=== PATIENT | male | born 1965 | race Caucasian/White ===

== ENCOUNTER 2020-03-15 15:42 | Emergency (ER) | payer OTHER, SELFPAY ==
--- NOTE | ~2020-03-15 | XR_ITS ---
EXAMINATION: XR foot LT min 3V DATE: 03/15/2020 16:01 INDICATION: Left foot pain. TECHNIQUE: 4 views of left foot were obtained. COMPARISON: None. FINDINGS: Bone alignment is normal. No fracture. There is mild osteoarthritis of first metatarsophala ngeal joint and talonavicular joint. There is heterotopic ossification distal to lateral malleolus fr om old injury. There are enthesophytes at the posterior and plantar aspects of calcaneal tuberosity. IMPRESSION: 1. Mild polyarticular osteoarthritis. Reviewed, dictated and finalized at location A.
[2020-03-15 15:44] VITALS: BP 145/78; PULSE 78; RESP 18; TEMP 36.4; O2SAT 100
[2020-03-15] MEDS: KETOROLAC (*BKC) 60 MG/2 ML VIAL IM (16:44)
--- NOTE | 2020-03-15 16:48 | ED.GENADULT ---
HPI - General Adult General Chief complaint: Extremity Injury, Lower Stated complaint: left ankle injury Time Seen by Provider: 03/15/20 15:54 Source: patient and family Mode of arrival: ambulatory Limitations: no limitations History of Present Illness HPI narrative: Patient is a 55-year-old male who presents with left midfoot ankle pain that began over a week ago patient was standing felt a pop in the ankle and has since had intermittent pain to the medial aspect of the midfoot ankle patient denies bruising swelling. Patient notes today while ambulating on uneven surface he began to have increasing pain patient denies other injury or complaint and is otherwise in the room in no distress presents with normal gait no distress Related Data Allergies Allergy/AdvReac Type Severity Reaction Status Date / Time No Known Allergies Allergy Unknown Unverified 03/15/20 15:46 Review of Systems Review of Systems: All systems reviewed & are unremarkable except as noted in HPI and below PMFSH Social History Social History (Updated 03/15/20 @ 16:49 by Nicho Tran PA-C) Smoking status: Never smoker Gender identity (if verbalized by the patient): Male Exam Narrative: Exam Narrative: GENERAL: Well-appearing, well-nourished, and in no acute distress. HEAD: Normocephalic, atraumatic. EYES: PERRLA and EOMI. ENT: Nares clear, no rhinorrhea or epistaxis. Mucous membranes moist. EXTREMITIES: Normal range of motion. No edema. Tenderness of the anterior medial aspect of the left ankle midfoot no deformities noted SKIN: Warm, dry, no rash. NEURO: No focal deficits. Alert and oriented x3. Neurovascularly intact. Capillary refill less than 2 seconds PSYCH: Normal mood and affect. Course Course Emergency Course: Patient in the room in no distress no high risk change in the imaging will be referred back to primary care and provided with orthopedic follow-up managed with anti-inflammatories was given anti-inflammatory in the emergency department as well as Iglesia wrap Vital Signs Vital signs: Vital Signs Temperature 97.6 F 03/15/20 15:44 Pulse Rate 78 03/15/20 15:44 Respiratory Rate 18 03/15/20 15:44 Blood Pressure 145/78 H 03/15/20 15:44 Pulse Oximetry 100 03/15/20 15:44 Temperature 97.6 F 03/15/20 15:44 Pulse Rate 78 03/15/20 15:44 Respiratory Rate 18 03/15/20 15:44 Blood Pressure 145/78 H 03/15/20 15:44 Pulse Oximetry 100 03/15/20 15:44 Medical Decision Making MDM Narrative Medical decision making narrative: Patients injury or pain is consistent with musculoskeletal etiology. No signs of neurological or vascular compromise on exam. Compartments and tisues are soft without signs of compartment syndrome. Pain is felt appropriate for further evaluation on an outpatient basis. Vital Signs Vital Signs: Vital Signs Temperature 97.6 F 03/15/20 15:44 Pulse Rate 78 03/15/20 15:44 Respiratory Rate 18 03/15/20 15:44 Blood Pressure 145/78 H 03/15/20 15:44 Pulse Oximetry 100 03/15/20 15:44 Temperature 97.6 F 03/15/20 15:44 Pulse Rate 78 03/15/20 15:44 Respiratory Rate 18 03/15/20 15:44 Blood Pressure 145/78 H 03/15/20 15:44 Pulse Oximetry 100 03/15/20 15:44 Discharge Plan Discharge Clinical Impression: Acute left ankle pain Patient Disposition: Home, Self-Care Condition: Stable Instructions: Antibiotic Form, Arthralgia (ED) Additional Instructions: Wear brace and use crutches. No weight on the affected leg until able to bear weight without pain. Ice and elevate extremity. Pain medication as needed and directed. Follow up with your doctor for further care in the next 7 days. Return if symptoms worsen or concerns or any increase in redness swelling pain or fever over 100.5 Prescriptions: New ibuprofen [IBU] 600 mg tablet 600 mg PO QID PRN (Reason: fever or pain) Qty: 7 RF: 0 Interventions: Discharge Disposition Last Done: 03/15/20 16:44
== END 2020-03-15 16:50 | disposition home or self-care (01) ==
PROVIDERS: Emergency Provider Emergency Medicine; PCP Internal Medicine
DX: M25.572 Pain in left ankle and joints of left foot (principal); M19.072 Primary osteoarthritis, left ankle and foot
CPT/HCPCS: 73630; 96372; 99283; J1885

== ENCOUNTER 2023-12-16 15:44 | Inpatient (IN) | payer OTHER, SELFPAY ==
[2023-12-16] VITALS (9 sets, daily range): BP systolic 132–165; BP diastolic 76–95; PULSE 63–72; RESP 15–17; TEMP 36–36.6; O2SAT 97–100; BMI 32.1
--- NOTE | ~2023-12-16 | CT_ITS ---
CTA chest abdomen pelvis Ordering provider: Severo Flannery MD History: . rule out dissection . Comparison: None. Technique: CT angiogram chest was performed following timed intravenous injection of contrast. Thin s lice axial images and reformatted coronal images were obtained. Three dimensional reformatted images of the chest were also obtained using a [employer]oust workstation. Also, CT of the abdomen and pelvis was pe rformed with IV contrast. Radiation reduction technique utilized. DLP is 1418.34 mGy. 100 mL Omnipaque 350 was given. FINDINGS: CHEST: --PULMONARY ARTERIES: No pulmonary embolus. --VISUALIZED THORACIC INLET: Normal. --MEDIASTINUM: Aorta/coronary arteries: Mild atheromatous disease. No evidence of dissection. Heart/other: The heart is not enlarged. Lymph nodes: No mediastinal or hilar adenopathy. --LUNGS: Dependent atelectatic changes. No pulmonary nodules or masses. No infiltrates or effusions. No pneumo thorax. --MUSCULOSKELETAL: Bones: Age appropriate degenerative changes of the spine. Superficial soft tissues: The superficial soft tissues are normal. ABDOMEN/PELVIS: --MUSCULOSKELETAL: Superficial soft tissues: The superficial soft tissues are normal. Bones: Age appropriate degenerative changes of the spine. --UPPER ABDOMINAL ORGANS: Liver: Fat infiltration. Gallbladder: Normal. Spleen: Normal. Stomach/duodenum: Normal. Pancreas: Normal. Adrenals: Normal. Kidneys: Normal. --PELVIC ORGANS: The bladder is normal. No bladder stones. --BOWEL AND MESENTERY: Colon: No evidence of diverticulitis.. Normal appendix. Small Bowel: Normal. No obstruction. Peritoneum/mesentery: No free air or free fluid. No mesenteric lymphadenopathy. --RETROPERITONEUM: Mild atheromatous disease of the abdominal aorta. No retroperitoneal lymphadenop athy. IMPRESSION: CHEST: 1. No pulmonary embolism. 2. No aortic dissection. 3. No acute cardiopulmonary pathology. ABDOMEN/PELVIS: 1. Fat infiltration of the liver 2. No acute abdominal process. Reviewed, dictated and finalized at location A.
--- NOTE | 2023-12-16 15:46 | ECG_ITS ---
Test Date: 2023-12-16 20:06:52 Measurements Intervals [place] Rate: 59 P: 27 CT: 158 QRS: 26 QRSD: 97 T: 31 QT: 408 QTc: 406 Interpretive Statements SINUS BRADYCARDIA WITHIN NORMAL LIMITS No previous ECG available for comparison Electronically Signed On 12-17-2023 08:00:01 CDT by Mukesh Mixon M.D.
--- NOTE | 2023-12-16 15:49 | ECG_ITS ---
Test Date: 2023-12-16 15:49:47 Measurements Intervals [place] Rate: 67 P: 30 AR: 140 QRS: 19 QRSD: 95 T: 44 QT: 375 QTc: 397 Interpretive Statements SINUS RHYTHM No previous ECG available for comparison Electronically Signed On 12-20-2023 13:24:02 CDT by Saira Asif M.D.
[2023-12-16 16:21] LABS: Basophils Absolute Auto 0.1 K/mm3 (0.0-0.1); Basophils Percent Auto 0.8 % (0.2-1.2); Eosinophils Absolute Auto 0.1 K/mm3 (0-0.3); Eosinophils Percent Auto 1.9 % (0-4.4); Hematocrit 45.1 % (42.0-52.0); Hemoglobin 15.8 g/dL (14.0-18.0); Immature Granulocyte Absolute 0.01 K/mm3 (0.00-0.031); Immature Granulocyte Percent A 0.2 % (0-0.5); Lymphocytes Absolute Auto 1.51 K/mm3 (0.9-3.2); Lymphocytes Percent Auto 25.6 % (18.3-44.2); Mean Corpuscular Hemoglobin 31.5 pg (26-34); Mean Corpuscular Volume 89.8 fl (80-100); Mean Platelet Volume 8.9 fl (7.4-10.4); Monocytes Absolute Auto 0.6 K/mm3 (0.1-0.6); Monocytes Percent Auto 10.7 % (2.6-8.5); Neutrophils Absolute Auto 3.6 K/mm3 (1.3-6.7); Neutrophils Percent Auto 60.8 % (45.5-73.1); Platelet Count Result 205 k/mm3 (150-375); Red Blood Count 5.02 M/mm3 (4.6-6.20); Red Cell Distribution Width 12.9 % (11.5-14.5); White Blood Count 5.9 K/mm3 (4.5-10.0)
[2023-12-16 16:35] LABS: Alanine Aminotransferase 21 U/L (6-50); Albumin Level 4.6 g/dL (3.5-5.1); Alkaline Phosphatase 88 U/L (38-126); Anion Gap 8 mmol/L (4-12); Aspartate Amino Transferase 28 U/L (17-59); Bilirubin,Total 0.9 mg/dL (0.2-1.3); Blood Urea Nitrogen 19 mg/dL (9-20); Calcium 9.2 mg/dL (8.4-10.2); Carbon Dioxide 25 mmol/L (22-30); Chloride 108 mmol/L (98-107); Estimated CRCL calculation 83 ml/min; Estimated Glomerular Filt Rate > 60; Glucose 103 mg/dL (65-110); Lipase 32 U/L (23-300); Potassium 3.7 mmol/L (3.4-5.0); Sodium 141 mmol/L (137-145)
[2023-12-16 16:49] LABS: Troponin I 0.052 ng/mL (0.000-0.034)
--- NOTE | 2023-12-16 18:05 | ED.GENADULT ---
HPI - General Adult General Chief complaint: Chest Pain Stated complaint: Back pain radiating to sternum up into jaw Time Seen by Provider: 12/16/23 17:50 History of Present Illness HPI narrative: Patient 58-year-old gentleman presents emergency department with chief complaint chest pain and back pain. Patient reports he felt as though a sledge hammer hit him in the back and the radiated into his chest and into his jaw patient reports he has not felt well since Tuesday and then reports that the episodes have been intermittent the patient reports his pain is essentially resolved at this point patient reports no prior cardiac history Related Data Allergies Allergy/AdvReac Type Severity Reaction Status Date / Time No Known Allergies Allergy Unknown Unverified 03/15/20 15:46 Review of Systems Review of Systems: A 10 system review of systems was completed on the patient and is negative except for what is stated in the HPI. Nursing and ancillary documentation was reviewed. [facility] Social History Social History Smoking status: Never smoker Gender identity (if verbalized by the patient): Male Exam Narrative: GENERAL: Well-appearing, well-nourished, and in no acute distress. HEAD: Normocephalic, atraumatic. EYES: PERRLA and EOMI. ENT: Nares clear, no rhinorrhea or epistaxis. Mucous membranes moist. NECK: Supple. CHEST: Clear to auscultation. No respiratory distress. HEART: Regular rate and rhythm. No murmur heard. Normal peripheral pulses. ABDOMEN: Soft, nontender, nondistended, normal active bowel sounds. EXTREMITIES: Normal range of motion. No edema. SKIN: Warm, dry, no rash. NEURO: No focal deficits. Alert and oriented x3. PSYCH: Normal mood and affect. Course Vital Signs Vital signs: Vital Signs Temperature 36.3 C L 12/16/23 15:49 Pulse Rate 72 12/16/23 15:49 Respiratory Rate 17 12/16/23 15:49 Blood Pressure 150/80 H 12/16/23 15:49 Pulse Oximetry 99 12/16/23 15:49 Oxygen Delivery Room Air 12/16/23 15:49 Temperature 36.6 C 12/16/23 18:00 Pulse Rate 65 12/16/23 18:00 Respiratory Rate 16 12/16/23 18:00 Blood Pressure 143/95 H 12/16/23 18:00 Pulse Oximetry 98 12/16/23 18:00 Oxygen Delivery Room Air 12/16/23 16:51 Medical Decision Making [facility] Narrative Medical decision making narrative: Differential diagnosis includes ACS, unstable angina, PE, aneurysm, dissection EKG showed no acute ischemic changes Laboratory studies were obtained on the patient showed normal CBC CMP was within normal limits lipase was normal troponin was slightly elevated at 0.052 CTA chest abdomen pelvis was obtained showed no evidence of PE no evidence of dissection no evidence of aneurysm. Patient's pain is essentially resolved at this point case was discussed with hospitalist cardiology has been contacted for consultation. Vital Signs Vital Signs: Vital Signs Temperature 36.3 C L 12/16/23 15:49 Pulse Rate 72 12/16/23 15:49 Respiratory Rate 17 12/16/23 15:49 Blood Pressure 150/80 H 12/16/23 15:49 Pulse Oximetry 99 12/16/23 15:49 Oxygen Delivery Room Air 12/16/23 15:49 Temperature 36.6 C 12/16/23 18:00 Pulse Rate 65 12/16/23 18:00 Respiratory Rate 16 12/16/23 18:00 Blood Pressure 143/95 H 12/16/23 18:00 Pulse Oximetry 98 12/16/23 18:00 Oxygen Delivery Room Air 12/16/23 16:51 Lab Data 12/16/23 16:11 12/16/23 16:11 Labs: Lab Results 12/16/23 Range/Units 16:11 WBC 5.9 (4.5-10.0) K/mm3 RBC 5.02 (4.6-6.20) M/mm3 Hgb 15.8 (14.0-18.0) g/dL Hct 45.1 (42.0-52.0) % MCV 89.8 (80-100) fl MCH 31.5 (26-34) pg MCHC 35.0 (32-36) g/dl RDW 12.9 (11.5-14.5) % Plt Count 205 (150-375) k/mm3 MPV 8.9 (7.4-10.4) fl Immature Gran % (Auto) 0.2 (0-0.5) % Neut % (Auto) 60.8 (45.5-73.1) % Lymph % (Auto) 25.6 (1
--- NOTE | 2023-12-16 19:24 | PC.NURSE ---
Pt states he is not having any cp at this time and would like to hold off on the ordered pain medicine for now. Pt instructed to notify this RN or another staff member if his pain returns.
--- NOTE | 2023-12-16 20:00 | ECG_ITS ---
Test Date: 2023-12-16 22:21:41 Measurements Intervals [place] Rate: 56 P: 18 NV: 161 QRS: 12 QRSD: 95 T: 8 QT: 407 QTc: 395 Interpretive Statements SINUS BRADYCARDIA WITHIN NORMAL LIMITS Compared to ECG 12/16/2023 20:06:52 No significant changes Electronically Signed On 12-17-2023 08:03:46 CDT by Mukesh Mixon M.D.
[2023-12-16 20:09] LABS: Troponin I 0.131 ng/mL (0.000-0.034)
[2023-12-16] MEDS: ASPIRIN 81 MG CHEWABLE TABLET 324 MG PO (20:40)
--- NOTE | 2023-12-16 20:49 | PC.NURSE ---
This patient, Ankur Julien, was admitted to IMU Room 200-01. Patient/family oriented to hospital policies and general routines including ID bracelet, bed and alarms, visiting hours, pain management, procedures, bathroom and other care routines, personal items, smoking policy, room service/diet, and visiting hours. Information on how to activate the Rapid Response Team has been discussed. Patient/Family are encouraged to report perceived risks to care and to ask questions if they do not understand what they are told or what they should do.
--- NOTE | 2023-12-16 21:02 | PM.IMHP ---
H&P: HPI History of Present Illness Date/Time: 12/16/23 21:02 Chief Complaint: Chest pain Narrative: 58-year-old male previously healthy who presented to the ER with chest pain. 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 He developed lumbar boat pain between his shoulder blades that shortly thereafter radiated through to his chest. The pain was a 7/10 intensity. He reports that the pain was like the after effects of a sledgehammer head hit him in the back. 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 He denied having lightheadedness or palpitations. He describes the the pain as heaviness. The patient stated the pain lasted a few minutes when it 1st occurred in the morning. Then happened again 2nd time in the afternoon and lasted for a few minutes. Pain was the same intensity at that time but then radiated up into the neck and into the left jaw. He had not felt well since Tuesday. He had an episode of double vision the day before. He had had prior episode of chest pain that was similar to this about a year ago but he did not seek medical care. He does not routinely follow with primary care physician. He was not in active pain when he arrived to the ER. He has had several friends who recently had heart attacks and or of heart disease and he reports he has 8-year-old twins that he knew we needed to be around for his children so, he reluctantly decided to come into the ER for evaluation. On presentation the ER the patient had mildly elevated blood pressures. His is at bedside and helps provide history and states the patient does snore quite vigorously. Patient has never been tested for sleep apnea. He reports that his weight is been stable but he is aware that he is obese. His states that the patient has been told the past that he is a prediabetic. He has not seen a doctor in several years. He did take some ibuprofen earlier in the day to see if this would relieve his pain. Full-dose aspirin was initially ordered in the ER but was not administered by nursing staff since the patient stated he did not want anything for pain. Full-dose aspirin was reordered just prior to the patient coming up to the IMU and was administered. Review of Systems Review of Systems: 12 systems were reviewed with pertinent positives and negatives per HPI. Except as documented in the HPI, all other systems were reviewed and are negative. [facility] Past Medical History Medical History (Updated 12/16/23 @ 22:38 by Renea Cole DO) GERD (gastroesophageal reflux disease) Kidney stones Obesity (BMI 30.0-34.9) Surgical History Surgical History (Updated 12/16/23 @ 22:38 by Renea Cole DO) H/O hemorrhoidectomy S/P cystoscopy with ureteral stent placement Family History Family History (Updated 12/16/23 @ 22:33 by Renea Cole DO) Sibling Acute myocardial infarction, Onset Age: 66 Father Acute myocardial infarction, Onset Age: 63 Sibling Acute myocardial infarction, Onset Age: 60 Mother Age older than 80 years at age 93 Social History Social History (Updated 12/16/23 @ 22:34 by Renea Cole DO) Social History: Patient lives with his they have been since 2010. They have 8-year-old twins. 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 He is a lifelong nonsmoker does not drink alcohol at all or use illicit substances. He has a sedentary lifestyle. Code status: Full code Surrogate decision maker: Ghazal () Smoking status: Never smoker Alcohol intake: never Substance use: never Substance use type: does not use Do You Feel Safe in your Home?: Yes Lack of Transportation: No Lack of Food: Never True Current Housing: I Have Housing Concerned About Future Housing: No Difficulty Paying Gas/Electric Bills: N
[2023-12-16] MEDS: ENOXAPARIN 120 MG/0.8 ML SYRINGE 107 MG SUB-Q (21:53)
[2023-12-16 22:43] LABS: Troponin I 0.239 ng/mL (0.000-0.034)
[2023-12-16] MEDS: METOPROLOL TARTRATE 25 MG TABLET PO (23:01)
[2023-12-16 23:58] LABS: Cholesterol 199 mg/dL (0-200); HDL Direct 33 mg/dL; Triglycerides 157 mg/dL (<150)
[2023-12-17] VITALS (18 sets, daily range): BP systolic 126–132; BP diastolic 64–83; PULSE 57–70; RESP 15–22; TEMP 36.1–36.8; O2SAT 97–100
[2023-12-17 00:08] LABS: LDL Cholesterol Direct 149 mg/dL
[2023-12-17 05:58] LABS: Hemoglobin A1C 4.9 % (<5.7)
[2023-12-17 06:12] LABS: Troponin I 0.418 ng/mL (0.000-0.034)
[2023-12-17 07:32] LABS: Free T4 Free Thyroxine Reflex 1.33 ng/dL (0.78-2.19)
--- NOTE | 2023-12-17 08:46 | PM.CNCAR ---
Assessment and Plan Assessment and plan (1) Non-STEMI (non-ST elevated myocardial infarction): Code(s): I21.4 - Non-ST elevation (NSTEMI) myocardial infarction Status: Acute Plan 58-year-old man with unknown previous medical history is he does not see a physician with any regularity. He presents with intermittent chest pain yesterday which must be presumed to be evidence of acute coronary syndrome/unstable angina as he has had a modest troponin rise. He has appropriately been started on aspirin and beta-betsy. I will add clopidogrel and rosuvastatin to this regimen. If he remains stable and symptom-free as he is now we will proceed with coronary angiography on Tuesday. Obviously if he becomes unstable that can happen more urgently. Thank you for asking me to see this nice man in consultation Mukesh Mixon MD [facility] History of Present Illness History of Present Illness Consult date/time: 12/17/23 08:46 Reason For Visit: chest pain, elevated troponin Narrative: This is a very pleasant 58-year-old man I am seeing at the request of the hospitalist because of chest pain and modest to elevation of troponin. He is not known to have cardiac problems prior to his and he really is not known to have much in the way of medical problems as he does not follow with a primary care physician with any regularity. He was in his usual state of good health when yesterday at work he noted the onset of some interscapular back pain that felt as though a hammer hit him in the back after short time this radiate around to the anterior aspect of the chest in the substernal region and then up into the anterior aspect of the neck and the jaw. The symptoms subsided after a while but then recurred a little later in the day. He finishes day of work a but that he told his that he thought he should go to the hospital for evaluation. In the emergency room by report he was asymptomatic his electrocardiogram looked normal. His troponin level was very slightly elevated but has increased modestly since the admission and in that setting I am seeing him in the IMU. He has not had any recurrence of symptoms since admission. He has been given aspirin, metoprolol and a therapeutic dose of Lovenox last evening by the hospitalist. He has not received any additional anti-platelet therapy or statin. He states that he is not known to have hypertension diabetes or dyslipidemia but again he does not follow regularly with a physician. He has does report a prominent family history of coronary disease with infarctions in both of his brothers and his father as well. No and has at a premature age of ischemic heart disease. He has not had any significant surgical operations and otherwise feels well at this time. Review of Systems Constitutional: Constitutional: Reports no additional constitutional complaints Eyes: Eyes: Reports no additional eye complaints ENT: Reports system reviewed and no additional complaints, except as documented Cardiovascular: Cardiovascular: Reports as per HPI Respiratory: Respiratory: Reports no additional respiratory complaints Gastrointestinal: Gastrointestinal: Reports no additional gastrointestinal complaints Musculoskeletal: Musculoskeletal: Reports no additional musculoskeletal complaints Integumentary/Breasts: Skin/Breast: Reports system reviewed and no additional complaints, except as docu Neurologic: Reports system reviewed and no additional complaints, except as documented Endocrine: Endocrine: Reports no additional endocrine complaints Hematologic/Lymphatic: Hematologic/Lymphatic: Reports no additional hematologic/lymphatic complaints Allergic/Immunologic: Allergic/Immunologic: Reports no additional allergic/immunologic complaints [facility] Past Medical History Medical History (Updated 12/16/23 @ 22:38 by Renea Cole DO) GERD (gastroesophageal reflux disease) Kidney stones Obesity (BMI 30.0-34.9) [place]
[2023-12-17 09:06] LABS: Total Triiodothyronine (T3) 1.35 NG/ML (0.97-1.69)
[2023-12-17] MEDS: METOPROLOL TARTRATE 25 MG TABLET PO ×2 (09:29→20:16)
[2023-12-17] MEDS: ROSUVASTATIN 10 MG TABLET PO (09:30)
[2023-12-17] MEDS: CLOPIDOGREL BISULFATE 300 MG TABLET PO (09:30)
--- NOTE | 2023-12-17 12:40 | ECG_ITS ---
Test Date: 2023-12-17 12:47:06 Measurements Intervals [place] Rate: 58 P: 22 PA: 158 QRS: 24 QRSD: 89 T: 41 QT: 399 QTc: 395 Interpretive Statements SINUS BRADYCARDIA OTHERWISE NORMAL ELECTROCARDIOGRAM Compared to ECG 12/16/2023 22:21:41 No significant changes Electronically Signed On 12-18-2023 08:24:40 CDT by Mukesh Mixon M.D.
--- NOTE | 2023-12-17 13:04 | PC.NURSE ---
Pt c/o CP. Dr Mixon notified and nitro PRN ordered. Pain relieved on it's own by the time RN brought Nitro to patient so it was not given. Pt. educated on reporting future pain to RN.
--- NOTE | 2023-12-17 13:06 | PCRCNOTE ---
Addendum entered by Johnna Hill, NATURAL RESOURCE SPECIALIST 12/17/23 13:11: Would encourage provider to consider autopap for pt as inpatient. Original Note: Spoke with pt and family regarding ApneaLink test, they had questions pertaining to the reason for the test and what results would mean. Discussed the screening tool and possible next steps for a titration study and cpap machine should he officially qualify with sleep study. We also discussed SHELDON and editorial writer explained pathology and importance of treatment for it.
[2023-12-17] MEDS: ENOXAPARIN 120 MG/0.8 ML SYRINGE 105 MG SUB-Q ×2 (13:08→20:17)
--- NOTE | 2023-12-17 14:02 | PM.IMPN ---
Progress Note: A&P Assessment and Plan (1) Non-STEMI (non-ST elevated myocardial infarction): Code(s): I21.4 - Non-ST elevation (NSTEMI) myocardial infarction Status: Acute Assessment and Plan: Patient presents with upper back pain that radiated through to his chest that occurred while working. Patient does not follow up with his doctor. He was noted to have elevated blood pressure on admission. Patient has been told that he is prediabetic. Is a lifelong nonsmoker. Coronary disease in family members in their 60s. Troponin trended up to 0.42. CTA of the chest, abdomen and pelvis showed fatty infiltration of the liver but no acute process. Specifically there was no PE or aortic dissection. EKG showed sinus bradycardia otherwise normal EKG. Repeat EKG showed no change. He was given aspirin. He was given a dose of Lovenox. He was admitted for further care. Total cholesterol was 199 with LDL 149. Cardiology consulted. Was loaded with Plavix. He was started on Lopressor, Plavix and Crestor. He was resumed on Lovenox. Plan is for left heart catheterization on Tuesday. (2) Elevated blood pressure reading: Code(s): R03.0 - Elevated blood-pressure reading, without diagnosis of hypertension Status: Acute Assessment and Plan: Systolic blood pressure mildly elevated 140-160 range. Blood pressure better after metoprolol dose. Continue to monitor. (3) Snoring: Code(s): R06.83 - Snoring Status: Acute Assessment and Plan: Patient with snoring per history. ApneaLink has been ordered. Follow-up on results. (4) Obesity (BMI 30.0-34.9): Code(s): E66.9 - Obesity, unspecified Status: Acute Assessment and Plan: BMI 32. Plan DVT prophylaxis -Lovenox Code status -full Subjective Date/time seen: 12/17/23 14:02 Interval history: 58yo male with GERD here for chest pain and found to have NSTEMI Slight chest pain and headache earlier but was brief and no NTG given. He feels well otherwise. No prior events of chest pain or increasing shortness of breath with normal activity. Exam Narrative: AF 97.1 129/69 64 22 97% Gen - NARD Chest - CTA bilaterally, nml RR CV - RRR S1/S2. Tele showing no significant dysrhythmias Abd - Soft, NT/ND, Positive BS Ext - No pedal edema Neuro - Alert and oriented. Nonfocal exam. Psych - Nml mood and affect Skin - Warm and dry Objective Data Vital Signs Vital Signs: Vital Signs - 24 hr 12/16/23 15:49 12/16/23 16:51 12/16/23 17:00 Temperature 97.4 F L 97.9 F Pulse Rate 72 67 Respiratory Rate 17 16 Blood Pressure 150/80 H 138/89 Pulse Oximetry 99 97 Oxygen Delivery Room Air Room Air 12/16/23 18:00 12/16/23 20:30 12/16/23 20:50 Temperature 97.8 F 96.8 F L Pulse Rate 65 68 65 Respiratory Rate 16 15 15 Blood Pressure 143/95 H 132/94 H 165/90 H Pulse Oximetry 98 98 100 Oxygen Delivery 12/16/23 23:01 12/16/23 23:27 12/16/23 23:32 Temperature 97 F L Pulse Rate 71 63 63 Respiratory Rate 15 Blood Pressure 134/76 Pulse Oximetry 100 100 Oxygen Delivery Room Air 12/16/23 22:00 12/17/23 00:00 12/17/23 00:00 Temperature Pulse Rate 63 62 Respiratory Rate Blood Pressure Pulse Oximetry Oxygen Delivery Room Air 12/16/23 21:00 12/17/23 02:00 12/17/23 04:00 Temperature Pulse Rate 57 L 59 L Respiratory Rate Blood Pressure Pulse Oximetry Oxygen Delivery Room Air 12/17/23 04:00 12/17/23 04:00 12/17/23 05:54 Temperature 96.9 F L Pulse Rate 62 58 L Respiratory Rate 15 Blood Pressure 127/81 Pulse Oximetry 100 Oxygen Delivery Room Air 12/17/23 07:23 12/17/23 09:29 12/17/23 08:00 Temperature 97.1 F L Pulse Rate 61 68 Respiratory Rate 21 H Blood Pressure 132/83 Pulse Oximetry 97 Oxygen Delivery Room Air 12/17/23 08:00 12/17/23 10:00 12/17/23 12:28 Temperature 97.1 F L Pulse Rate 6
[2023-12-18] VITALS (19 sets, daily range): BP systolic 117–133; BP diastolic 68–83; PULSE 55–68; RESP 18–20; TEMP 36.2–37.2; O2SAT 96–99
[2023-12-18] MEDS: ASPIRIN 81 MG CHEWABLE TABLET PO (08:06)
[2023-12-18] MEDS: METOPROLOL TARTRATE 25 MG TABLET PO ×2 (08:06→20:27)
[2023-12-18] MEDS: ROSUVASTATIN 10 MG TABLET PO (08:06)
[2023-12-18] MEDS: CLOPIDOGREL BISULFATE 75 MG TABLET PO (08:06)
[2023-12-18] MEDS: ENOXAPARIN 120 MG/0.8 ML SYRINGE 105 MG SUB-Q ×2 (08:07→20:28)
--- NOTE | 2023-12-18 09:49 | PM.PNCARD ---
Progress Note: A&P Assessment and Plan (1) Non-STEMI (non-ST elevated myocardial infarction): Code(s): I21.4 - Non-ST elevation (NSTEMI) myocardial infarction Status: Acute Plan 58-year-old man without previous significant medical history presenting with chest pain, very modest troponin rise. Patient has acute coronary syndrome until proven otherwise. We will bring him for coronary angiography tomorrow and further recommendations will be forthcoming after that. We will stop his Lovenox after this evening's dose in anticipation of angiography tomorrow Mukesh Mixon MD [facility] Subjective Date/time seen: Date of service: 12/18/23 09:49 Interval history: Follow-up visit in this 58-year-old man with presumed acute coronary syndrome. He feels well this morning has no further episodes of chest pain. Had a brief episode of self limited the chest and anterior neck pain yesterday which resolved prior to him receiving any treatment. This lasted for for 5 minutes according to what he tells me this morning. Reviewed plans for coronary angiography tomorrow with him he understands this well and is in agreement Exam Const: General: comfortable and no acute distress Other: Pleasant gentleman no apparent distress HENMT: Mouth: Yes moist mucous membranes Eyes: Sclera: sclerae normal Neck: Neck: supple and no JVD Resp: Effort & Inspection: normal respiratory effort Auscultation: clear to auscultation bilaterally Cardio: Rate: regular rate Rhythm: regular rhythm Other: PMI nondisplaced first and second heart sounds normal no gallop no murmur GI: GI Palp: Yes Soft to palpation Auscultation: normal bowel sounds Skin: General skin exam: normal color Neuro: Other: Alert and oriented x3 Extrem: Other: Normal perfusion, no edema Objective Data Vital Signs Vital Signs: Vital Signs - 24 hr 12/17/23 10:00 12/17/23 12:28 12/17/23 14:01 Temperature 36.2 C L Pulse Rate 70 64 64 Respiratory Rate 22 H Blood Pressure 129/69 Pulse Oximetry 97 97 Oxygen Delivery Room Air 12/17/23 12:00 12/17/23 14:00 12/17/23 12:00 Temperature Pulse Rate 65 62 Respiratory Rate Blood Pressure Pulse Oximetry Oxygen Delivery Room Air 12/17/23 15:57 12/17/23 16:00 12/17/23 18:00 Temperature 36.6 C Pulse Rate 61 61 67 Respiratory Rate 20 Blood Pressure 129/74 Pulse Oximetry 98 Oxygen Delivery 12/17/23 16:00 12/17/23 20:00 12/17/23 20:16 Temperature 36.8 C Pulse Rate 63 66 Respiratory Rate 15 Blood Pressure 126/64 Pulse Oximetry 97 Oxygen Delivery Room Air 12/17/23 20:00 12/17/23 20:00 12/17/23 22:00 Temperature Pulse Rate 63 64 Respiratory Rate Blood Pressure Pulse Oximetry Oxygen Delivery Room Air 12/18/23 00:00 12/18/23 00:00 12/18/23 00:00 Temperature 37.2 C Pulse Rate 61 60 Respiratory Rate 18 Blood Pressure 120/74 Pulse Oximetry 99 Oxygen Delivery Room Air 12/18/23 02:00 12/18/23 04:00 12/18/23 04:00 Temperature 36.2 C L Pulse Rate 58 L 60 58 L Respiratory Rate 18 Blood Pressure 131/81 Pulse Oximetry 99 Oxygen Delivery 12/18/23 04:00 12/18/23 06:00 12/18/23 07:28 Temperature 36.7 C Pulse Rate 59 L 57 L Respiratory Rate 20 Blood Pressure 133/83 Pulse Oximetry 97 Oxygen Delivery Room Air 12/18/23 08:06 Temperature Pulse Rate 66 Respiratory Rate Blood Pressure Pulse Oximetry Oxygen Delivery Intake/Output Intake/Output: Intake & Output 12/15/23 12/16/23 12/17/23 12/18/23 23:59 23:59 23:59 23:59 Intake Total 1680 500 Output Total 1300 200 Balance 380 300 Meds/Results Medications: Active Medications Generic Name Dose Route Start Last Admin Trade Name Freq PRN Reason Stop Dose Admin Aspirin 81 mg 12/17/23 08:00 12/18/23 08:06 Aspirin 81 Mg Chewable Tablet PO 81 mg DAILY@0800 [facility] Administration Clopid
--- NOTE | 2023-12-18 15:01 | PM.IMPN ---
Progress Note: A&P Assessment and Plan (1) Non-STEMI (non-ST elevated myocardial infarction): Code(s): I21.4 - Non-ST elevation (NSTEMI) myocardial infarction Status: Acute Assessment and Plan: Patient presents with upper back pain that radiated through to his chest that occurred while working. Patient does not follow up with his doctor. He was noted to have elevated blood pressure on admission. Patient has been told that he is prediabetic. He is a lifelong nonsmoker. Coronary disease in family members in their 60s. Troponin trended up to 0.42. CTA of the chest, abdomen and pelvis showed fatty infiltration of the liver but no acute process. Specifically there was no PE or aortic dissection. EKG showed sinus bradycardia otherwise normal EKG. Repeat EKG showed no change. He was given aspirin. He was given a dose of Lovenox. He was admitted for further care. Total cholesterol was 199 with LDL 149. Cardiology consulted. He was loaded with Plavix. He was started on Lopressor, Plavix and Crestor. He was resumed on therapeutic Lovenox. Plan is for left heart catheterization tomorrow (2) Elevated blood pressure reading: Code(s): R03.0 - Elevated blood-pressure reading, without diagnosis of hypertension Status: Acute Assessment and Plan: Systolic blood pressure mildly elevated 140-160 range. Blood pressure better after metoprolol dose. Continue to monitor. (3) Snoring: Code(s): R06.83 - Snoring Status: Acute Assessment and Plan: Patient with snoring per history. ApneaLink showing AHI 20 and RI 21.5. Patieint will need sleep study as outpatient. Plan DVT prophylaxis -Lovenox Code status -full Subjective Date/time seen: 12/18/23 15:01 Interval history: 58yo male with GERD here for chest pain and found to have NSTEMI No chest pain or SOB. No complaints. Exam Narrative: AF 98.2 117/68 60 18 96% Gen - NARD Chest - CTA bilaterally, nml RR CV - RRR S1/S2. Tele showing no significant dysrhythmias Abd - Soft, NT/ND, Positive BS Ext - No pedal edema Psych - Nml mood and affect Skin - Warm and dry Objective Data Vital Signs Vital Signs: Vital Signs - 24 hr 12/17/23 15:57 12/17/23 16:00 12/17/23 18:00 Temperature 97.9 F Pulse Rate 61 61 67 Respiratory Rate 20 Blood Pressure 129/74 Pulse Oximetry 98 Oxygen Delivery 12/17/23 16:00 12/17/23 20:00 12/17/23 20:16 Temperature 98.3 F Pulse Rate 63 66 Respiratory Rate 15 Blood Pressure 126/64 Pulse Oximetry 97 Oxygen Delivery Room Air 12/17/23 20:00 12/17/23 20:00 12/17/23 22:00 Temperature Pulse Rate 63 64 Respiratory Rate Blood Pressure Pulse Oximetry Oxygen Delivery Room Air 12/18/23 00:00 12/18/23 00:00 12/18/23 00:00 Temperature 99 F Pulse Rate 61 60 Respiratory Rate 18 Blood Pressure 120/74 Pulse Oximetry 99 Oxygen Delivery Room Air 12/18/23 02:00 12/18/23 04:00 12/18/23 04:00 Temperature 97.2 F L Pulse Rate 58 L 60 58 L Respiratory Rate 18 Blood Pressure 131/81 Pulse Oximetry 99 Oxygen Delivery 12/18/23 04:00 12/18/23 06:00 12/18/23 07:28 Temperature 98.1 F Pulse Rate 59 L 57 L Respiratory Rate 20 Blood Pressure 133/83 Pulse Oximetry 97 Oxygen Delivery Room Air 12/18/23 08:06 12/18/23 08:00 12/18/23 11:07 Temperature 98.2 F Pulse Rate 66 55 L Respiratory Rate Blood Pressure 117/68 Pulse Oximetry 96 Oxygen Delivery Room Air 12/18/23 08:00 12/18/23 10:00 12/18/23 12:00 Temperature Pulse Rate 68 61 60 Respiratory Rate Blood Pressure Pulse Oximetry Oxygen Delivery 12/18/23 12:00 Temperature Pulse Rate Respiratory Rate Blood Pressure Pulse Oximetry Oxygen Delivery Room Air Intake/Output Intake/Output: Intake & Output 12/15/23 12/16/23 12/17/23 12/18/23 23:59 23:59 23:59 23:59 Intake Total 1680 9
[2023-12-19] VITALS (38 sets, daily range): BP systolic 109–134; BP diastolic 62–92; PULSE 52–66; RESP 14–20; TEMP 36.1–36.8; O2SAT 95–100
[2023-12-19 04:25] LABS: Basophils Absolute Auto 0.1 K/mm3 (0.0-0.1); Basophils Percent Auto 1.1 % (0.2-1.2); Eosinophils Absolute Auto 0.2 K/mm3 (0-0.3); Eosinophils Percent Auto 2.4 % (0-4.4); Hematocrit 45.3 % (42.0-52.0); Hemoglobin 16.1 g/dL (14.0-18.0); Immature Granulocyte Absolute 0.01 K/mm3 (0.00-0.031); Immature Granulocyte Percent A 0.2 % (0-0.5); Lymphocytes Absolute Auto 1.72 K/mm3 (0.9-3.2); Lymphocytes Percent Auto 27.9 % (18.3-44.2); Mean Corpuscular HGB Conc 35.5 g/dl (32-36); Mean Corpuscular Hemoglobin 31.4 pg (26-34); Mean Corpuscular Volume 88.5 fl (80-100); Mean Platelet Volume 9.1 fl (7.4-10.4); Monocytes Absolute Auto 0.7 K/mm3 (0.1-0.6); Monocytes Percent Auto 10.6 % (2.6-8.5); Neutrophils Absolute Auto 3.6 K/mm3 (1.3-6.7); Neutrophils Percent Auto 57.8 % (45.5-73.1); Platelet Count Result 194 k/mm3 (150-375); Red Blood Count 5.12 M/mm3 (4.6-6.20); Red Cell Distribution Width 12.8 % (11.5-14.5); White Blood Count 6.2 K/mm3 (4.5-10.0)
[2023-12-19 04:36] LABS: Alanine Aminotransferase 21 U/L (6-50); Albumin Level 4.1 g/dL (3.5-5.1); Alkaline Phosphatase 83 U/L (38-126); Anion Gap 6 mmol/L (4-12); Aspartate Amino Transferase 29 U/L (17-59); Bilirubin,Total 1.2 mg/dL (0.2-1.3); Blood Urea Nitrogen 17 mg/dL (9-20); Carbon Dioxide 25 mmol/L (22-30); Chloride 106 mmol/L (98-107); Estimated CRCL calculation 90 ml/min; Estimated Glomerular Filt Rate > 60; Glucose 96 mg/dL (65-110); Potassium 3.7 mmol/L (3.4-5.0); Sodium 137 mmol/L (137-145)
[2023-12-19] MEDS: ROSUVASTATIN 20 MG TABLET BY MOUTH (08:03)
[2023-12-19] MEDS: ASPIRIN 81 MG CHEWABLE TABLET PO (08:06)
[2023-12-19] MEDS: METOPROLOL TARTRATE 25 MG TABLET PO ×2 (08:06→20:17)
[2023-12-19] MEDS: CLOPIDOGREL BISULFATE 75 MG TABLET PO (08:06)
--- NOTE | 2023-12-19 08:18 | PC.NURSE ---
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 Accompanied by and cath RN
--- NOTE | 2023-12-19 08:28 | WPDMODSED ---
Moderate Sedation Note-Pt Data Patient Data Diagnosis: Chest pain / unstable angina Present Complaint: intermittent chest pain Procedure to be performed/Plan: left heart catheterization Allergies Allergy/AdvReac Type Severity Reaction Status Date / Time No Known Allergies Allergy Unknown Unverified 03/15/20 15:46 Home Medications Medication Instructions Recorded Confirmed Type ibuprofen 600 mg tablet (IBU) 600 mg PO QID PRN fever or pain #7 03/15/20 12/16/23 Rx tabs Current Medications: Active Medications Aspirin (Aspirin 81 Mg Chewable Tablet) 81 mg PO DAILY@0800 [facility] Last Admin: 12/19/23 08:06 Dose: 81 mg Clopidogrel Bisulfate (Clopidogrel Bisulfate 75 Mg Tablet) 75 mg PO QAM [facility] Last Admin: 12/19/23 08:06 Dose: 75 mg Metoprolol Tartrate (Metoprolol Tartrate 25 Mg Tablet) 25 mg PO Q12HR [facility] Last Admin: 12/19/23 08:06 Dose: 25 mg Nitroglycerin (Nitroglycerin Sl 0.4 Mg Tablet) 0.4 mg SUBLINGUAL Q5MIN PRN PRN Reason: Chest Pain Rosuvastatin Calcium (Rosuvastatin 10 Mg Tablet) [facility] [place] [place] Last Admin: 12/18/23 08:06 Dose: 10 mg Sedation/Anesthesia: No previous sedation/anesthesia problems (including family history). [facility] Past Medical History Medical History (Updated 12/16/23 @ 22:38 by Renea Cole DO) GERD (gastroesophageal reflux disease) Kidney stones Obesity (BMI 30.0-34.9) Surgical History Surgical History (Updated 12/16/23 @ 22:38 by Renea Cole DO) H/O hemorrhoidectomy S/P cystoscopy with ureteral stent placement Family History Family History (Updated 12/16/23 @ 22:33 by Renea Cole DO) Sibling Acute myocardial infarction, Onset Age: 66 Father Acute myocardial infarction, Onset Age: 63 Sibling Acute myocardial infarction, Onset Age: 60 Mother Age older than 80 years at age 93 Social History Social History (Updated 12/16/23 @ 22:34 by Renea Cole DO) Social History: Patient lives with his they have been since 2010. They have 8-year-old twins. 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 He is a lifelong nonsmoker does not drink alcohol at all or use illicit substances. He has a sedentary lifestyle. Code status: Full code Surrogate decision maker: Ghazal () Smoking status: Never smoker Alcohol intake: never Substance use: never Substance use type: does not use Do You Feel Safe in your Home?: Yes Lack of Transportation: No Lack of Food: Never True Current Housing: I Have Housing Concerned About Future Housing: No Difficulty Paying Gas/Electric Bills: No Difficulty Paying for Meds: No Currently Unemployed: No Education: High School Diploma/GED Difficulty w/ Childcare or Family Care: No Gender identity (if verbalized by the patient): Male Spiritual care concerns: No Mod Sed Physical Exam Physical Exam Pre Procedural Exam: Normal: Neck, Throat, Airway, Lungs, Heart Size, Heart Rate, Heart Rhythm, Neuro Exam and Extremities and Variation: Appearance ( pleasant overweight gentleman) Hours since solid foods: 12 Hours since liquid intake: 12 Mallampati Classification: class II Internal Medicine - PN: Obj Da Vital Signs Vital Signs: Vital Signs - 24 hr 12/18/23 11:07 12/18/23 10:00 12/18/23 12:00 Temperature 36.8 C Pulse Rate 55 L 61 60 Respiratory Rate Blood Pressure 117/68 Pulse Oximetry 96 Oxygen Delivery 12/18/23 12:00 12/18/23 15:53 12/18/23 14:00 Temperature 36.9 C Pulse Rate 59 L 63 Respiratory Rate 20 Blood Pressure 126/69 Pulse Oximetry 98 Oxygen Delivery Room Air 12/18/23 16:00 12/18/23 16:00 12/18/23 18:00 Temperature Pulse Rate 58 L 68 Respiratory Rate Blood Pressure Pulse Oximetry Oxygen Delivery Room Air 12/18/23 20:11 12/18/23 20:27 12/18/23 20:00 Temperature 36.6 C Pulse Rate 65 66 67 Respiratory Rate 20 Blood Pressure 125/72 Pu
--- NOTE | 2023-12-19 09:11 | ECG_ITS ---
Test Date: 2023-12-19 10:46:18 Measurements Intervals [place] Rate: 52 P: 21 [place]: 164 QRS: 19 QRSD: 93 T: 30 QT: 421 QTc: 395 Interpretive Statements SINUS BRADYCARDIA OTHERWISE NORMAL ELECTROCARDIOGRAM Compared to ECG 12/17/2023 12:47:06 No significant changes Electronically Signed On 12-19-2023 15:55:37 CDT by Mukesh Mixon M.D.
--- NOTE | 2023-12-19 09:15 | WPDCARDPROC ---
Cardiac Cath Procedure Note Date of procedure:: 12/19/23 Performing physician:: Mukesh Mixon MD Indication:: unstable angina/acute coronary syndrome Brief clinical history:: this is a 58-year-old man without previous cardiac history went to the hospital over the weekend with intermittent chest pain of an ischemic nature and a very modest rise in his troponin. In this setting angiography has been recommended. Procedure Procedure performed:: Left ventriculogram coronary angiography PCI (ROSANNA) to the mid right coronary artery Sedation/Medication given:: fentanyl 50 mg Versed 2 mg case start time 8:39 a.m. case end time 9:08 a.m. sedation provided by Caren Purcell RN, trained observer Access site:: right femoral artery Estimated blood loss:: 25 cc Procedure note:: patient was brought to the cardiac catheterization lab in the postabsorptive state where the right femoral triangle was draped in the normal sterile fashion. Anesthesia was provided with 1% lidocaine infiltrated locally. Using the modified Seldinger technique the femoral artery was punctured and a 5 [place]ian vascular sheath was placed. After this 5 [place]ian angled pigtail catheter was used to measure left-sided hemodynamics and perform left ventriculogram in the DAVID projection. After this the left coronary artery was engaged and injected using a standard 5 [place]ian FL4 catheter. The right coronary artery was then engaged and injected using a standard 5 [place] JR4 catheter. Cineangiograms were then reviewed and the preparations were made for PCI of the right coronary artery as described below. Prior to PCI the 5 [place]ian sheath was upsized over a guidewire for a 6 [place] sheath. He received systemic anticoagulation with bolus and infusion of Angiomax for this infusion. Prior to PCI he received an additional 300 mg of oral clopidogrel. Following the procedure the catheters were removed the sheath was sutured into position he was taken to the holding area for post cath/PCI recovery. Procedure was well tolerated and uncomplicated there was no evidence of groin hematoma upon leaving the cardiac catheterization lab. Findings:: Hemodynamics: Central aortic pressure is 116/64 left ventricle 160 end-diastolic 10 gradient pullback across the aortic valve. Left ventricle: The LV is normal in size all segments contract appropriately the global ejection fraction visually estimates to be 60%. The left main coronary artery is widely patent the left anterior descending is a medium caliber artery somewhat tortuous and extends down to the apex. The LAD and its branches are free of disease. The circumflex is a medium caliber artery giving rise to the marginal branches. The circumflex is he free of disease, also somewhat tortuous right coronary artery is large caliber and dominant to the posterior circulation. Most of the RCA is angiographically normal however there is a discrete 90% stenosis in the 2nd portion of the vessel. Intervention: The right coronary artery was engaged using a 6 [place]ian JR4 guiding catheter. I used a 0.014 BMW coronary guidewire to wire the RCA easily the wire was advanced into the RPL branch. The target lesion in the 2nd portion of the right coronary was pre-dilated using 3.5 x 15 mm Panterra balloon which had to be inflated to 10 atmospheres to dilate the target lesion. Following this I stented the target lesion using a 4.0 x 18 mm Orsiro stent deployed at 14 atmospheres to a diameter of 4.3 mm which provided an excellent anatomic result with the vessel is widely patent no disruption dissection or distal embolization. It should be noted that and the coronary guidewire did straighten proximal tortuosity in the RCA creating the appearance of proximal pseudo lesion which resolved as the guidewire was withdrawn. Conclusion:: 1. Right coronary dominant circulation with single-vessel coronary disease with 90% stenosis of
[2023-12-19 09:40] LABS: Cholesterol 192 mg/dL (0-200); HDL Direct 31 mg/dL; Triglycerides 152 mg/dL (<150)
[2023-12-19 09:51] LABS: LDL Cholesterol Direct 143 mg/dL
[2023-12-19] MEDS: SODIUM CHLORIDE 0.9% IV 1,000 ML 125 ML IV CONT (10:50)
[2023-12-19] MEDS: HYDROcodone/acetaminophen (*CRX) 5-325 MG TABLET 1 TAB PO (10:59)
[2023-12-19] MEDS: fentaNYL CITRATE INJ (*CRX) 100 MCG/2 ML VIAL 25 MCG IV PUSH (12:04)
--- NOTE | 2023-12-19 13:19 | PM.IMPN ---
Progress Note: A&P Assessment and Plan (1) Non-STEMI (non-ST elevated myocardial infarction): Code(s): I21.4 - Non-ST elevation (NSTEMI) myocardial infarction Status: Acute Assessment and Plan: Patient presents with upper back pain that radiated through to his chest that occurred while working. He was noted to have elevated blood pressure on admission. Patient has been told that he is prediabetic. He is a lifelong nonsmoker. Coronary disease in family members in their 60s. A1c 4.9. Troponin trended up to 0.42. CTA of the chest, abdomen and pelvis showed fatty infiltration of the liver but no acute process. Specifically there was no PE or aortic dissection. EKG showed sinus bradycardia otherwise normal EKG. Repeat EKG showed no change. He was given aspirin. He was given a dose of Lovenox. He was admitted for further care. Total cholesterol was 199 with LDL 149. Cardiology consulted. He was loaded with Plavix. He was started on Lopressor, Plavix and Crestor. He was resumed on therapeutic Lovenox. He underwent left heart catheterization today showin. Right coronary dominant circulation with single-vessel coronary disease with 90% stenosis of mid RCA which is a large dominant vessel 2. Normal left ventricular systolic contractility 3. Successful revascularization using the 4 x 18 mm Orsiro drug-eluting stent with an excellent anatomical result. Patient appears to have tolerated the procedure well. Continue aggressive medical management. (2) CAD (coronary artery disease): Code(s): I25.10 - Atherosclerotic heart disease of [place] coronary artery without angina pectoris Status: Acute Assessment and Plan: As above (3) Elevated blood pressure reading: Code(s): R03.0 - Elevated blood-pressure reading, without diagnosis of hypertension Status: Acute Assessment and Plan: Systolic blood pressure mildly elevated 140-160 range. Blood pressure better after metoprolol dose. Continue to monitor. (4) Snoring: Code(s): R06.83 - Snoring Status: Acute Assessment and Plan: Patient with snoring per history. ApneaLink showing AHI 20 and RI 21.5. Patieint will need sleep study as outpatient. Plan DVT prophylaxis - SCD Code status -full Subjective Date/time seen: 12/19/23 13:19 Interval history: 58yo male with GERD here for chest pain and found to have NSTEMI No issues overnight. No CP. Has eaten since the procedure and toelrated this well. Exam Narrative: AF 97.0 117/84 57 14 100% Gen - NARD Chest - CTA bilaterally, nml RR CV - RRR S1/S2. Tele showing no significant dysrhythmias Abd - Soft, NT/ND, Positive BS Ext - No pedal edema. 2+ right DP pulse. slight oozing at cath site right femoral are without hematoma Psych - Nml mood and affect Skin - Warm and dry Objective Data Vital Signs Vital Signs: Vital Signs - 24 hr 12/18/23 15:53 12/18/23 14:00 12/18/23 16:00 Temperature 98.5 F Pulse Rate 59 L 63 58 L Respiratory Rate 20 Blood Pressure 126/69 Pulse Oximetry 98 Oxygen Delivery 12/18/23 16:00 12/18/23 18:00 12/18/23 20:11 Temperature 97.8 F Pulse Rate 68 65 Respiratory Rate 20 Blood Pressure 125/72 Pulse Oximetry 99 Oxygen Delivery Room Air 12/18/23 20:27 12/18/23 20:00 12/18/23 22:00 Temperature Pulse Rate 66 67 62 Respiratory Rate Blood Pressure Pulse Oximetry Oxygen Delivery 12/18/23 20:00 12/18/23 23:49 12/19/23 00:00 Temperature 97.7 F Pulse Rate 60 63 Respiratory Rate 20 Blood Pressure 117/76 Pulse Oximetry 97 Oxygen Delivery Room Air 12/19/23 00:00 12/19/23 04:07 12/19/23 02:00 Temperature 97.8 F Pulse Rate 58 L 60 Respiratory Rate 20 Blood Pressure 114/80 Pulse Oximetry 99 Oxygen Delivery Room Air 12/19/23 04:00 12/19/23 04:00 12/19/23 06:00 Temperature Pulse Rate 57 L 58 L Respiratory Rate
[2023-12-19] MEDS: PANTOPRAZOLE SODIUM IV 40 MG VIAL IV PUSH (18:38)
[2023-12-19] MEDS: ONDANSETRON INJ 4 MG/2 ML VIAL IV PUSH (18:39)
[2023-12-20] VITALS (12 sets, daily range): BP systolic 107–127; BP diastolic 65–79; PULSE 59–71; RESP 14–18; TEMP 36.3–36.6; O2SAT 95–99
--- NOTE | 2023-12-20 | ECHO_ITS ---
Patient Info Name: Ankur Julien Age: 58 years : 1965 Gender: Male Ht: 71 in Wt: 227 lbs BSA: 2.30 m2 HR: 63 bpm BP: 127 / 76 mmHg Heart Rhythm: Sinus Rhythm Technical Quality: Good Exam Date: 12/20/2023 12:42 PM Exam Location: Echo Lab Patient Status: Inpatient Admit Date: 12/17/2023 Staff Ordering Physician: Arabella Cortes Desk Sergeant: Yamilka Mccauley RDCS Attending Provider: Federico Lombardi MD Referring Physician: Sophia BATRES; Exam Type: CA echo dop color flow w con Study Info Indications - NSTEMI Complete two-dimensional, color flow and Doppler transthoracic echocardiogram is performed with contrast to opacify the left ventricle and to improve the deliniation of the left ventricle endocardial borders. Contrast/Agitated Saline Contrast/Ag. Saline: Definity Amount: 3.00 ml Administered By: Yamilka Mccauley RDCS Existing IV Access: Yes IV Access Condition: patent with no signs of infiltration Summary 1. Left ventricular chamber dimension is normal. 2. Left ventricular systolic function is normal, estimated at 55-60%. 3. The left ventricular diastolic function is grade I diastolic dysfunction. 4. Right ventricular chamber dimension is moderately enlarged. 5. Right ventricular systolic function is normal. 6. Right atrial chamber dimension is moderately enlarged. 7. There is mild tricuspid valve regurgitation. Left Ventricle Left ventricular chamber dimension is normal. Left ventricular systolic function is normal, estimated at 55-60%. There is no increased left ventricular wall thickness. The left ventricular diastolic function is grade I diastolic dysfunction. Right Ventricle Right ventricular chamber dimension is moderately enlarged. Right ventricular systolic function is normal. Left Atria Left atrial chamber dimension is normal. Right Atria Right atrial chamber dimension is moderately enlarged. Atrial Septum Intact interatrial septum visualized by color flow imaging. Aortic Valve The aortic valve is probable trileaflet. There is mild aortic valve sclerosis. There is no aortic valve stenosis. There is no aortic valve regurgitation. Pulmonic Valve The pulmonic valve is not well visualized. There is trace pulmonic regurgitation. Mitral Valve The mitral valve has thickened leaflets. There is trace mitral valve regurgitation. Tricuspid Valve There is mild tricuspid valve regurgitation. Pericardium/Pleural There is no pericardial effusion. Inferior Vena Cava Normal inferior vena cava with <50% collapse upon inspiration consistent with elevated right atrial pressure, 8 mmHg. Aorta The aortic root size at the sinus of Valsalva is normal. Left Ventricular Outflow Tract Name Value Normal LVOT 2D LVOT Diameter 2.02 cm LVOT Doppler LVOT Peak Gradient 2 mmHg LVOT Mean Gradient 1 mmHg LVOT VTI 16.28 cm LVOT VTI/AV VTI Ratio 0.72 LVOT Stroke Volume 52.27 ml LVOT CO 3.09 l/min LVOT CI 1.35 L/min/
--- NOTE | 2023-12-20 05:11 | ECG_ITS ---
Test Date: 2023-12-20 09:07:27 Measurements Intervals [place] Rate: 64 P: 26 IN: 155 QRS: 18 QRSD: 86 T: 58 QT: 393 QTc: 405 Interpretive Statements SINUS RHYTHM NONSPECIFIC T-WAVE ABNORMALITY Compared to ECG 12/19/2023 10:46:18 NO SIGNIFICANT CHANGES Electronically Signed On 12-20-2023 13:36:57 CDT by Saira Asif M.D.
[2023-12-20] MEDS: CLOPIDOGREL BISULFATE 75 MG TABLET PO (08:28)
[2023-12-20] MEDS: ROSUVASTATIN 20 MG TABLET BY MOUTH (08:28)
[2023-12-20] MEDS: METOPROLOL TARTRATE 25 MG TABLET PO (08:28)
[2023-12-20] MEDS: ASPIRIN 81 MG CHEWABLE TABLET PO (08:28)
[2023-12-20] MEDS: PANTOPRAZOLE SODIUM IV 40 MG VIAL IV PUSH (08:29)
[2023-12-20 10:02] LABS: Estimated CRCL calculation 75 ml/min; Estimated Glomerular Filt Rate > 60
--- NOTE | 2023-12-20 10:35 | PM.PNCARD ---
Progress Note: A&P Assessment and Plan (1) Non-STEMI (non-ST elevated myocardial infarction): Code(s): I21.4 - Non-ST elevation (NSTEMI) myocardial infarction Status: Acute Assessment and Plan: Presented with chest pain and was found to have elevated troponin levels. Cardiac catheterization showed 90% RCA stenosis; now s/p PCI with DESx1/mid RCA DAPT with Plavix for 1 year, ASA indefinitely High intensity statin Beta betsy Aggressive risk factor modification for CAD Check echo OK for discharge today from cardiac standpoint Subjective Date/time seen: 12/20/23 10:35 Interval history: Follow-up visit in this 58-year-old man with acute coronary syndrome s/p PCI Date of service 12/20/2023: Feeling well today and has no complaints. He denies any chest pain, shortness of breath. Telemetry shows sinus rhythm/sinus bradycardia. Review of Systems Constitutional: Constitutional: Reports no additional constitutional complaints Eyes: Eyes: Reports no additional eye complaints ENT: Reports system reviewed and no additional complaints, except as documented Cardiovascular: Cardiovascular: Reports as per HPI Respiratory: Respiratory: Reports no additional respiratory complaints Gastrointestinal: Gastrointestinal: Reports no additional gastrointestinal complaints Musculoskeletal: Musculoskeletal: Reports no additional musculoskeletal complaints Integumentary/Breasts: Skin/Breast: Reports system reviewed and no additional complaints, except as docu Neurologic: Reports system reviewed and no additional complaints, except as documented Endocrine: Endocrine: Reports no additional endocrine complaints Hematologic/Lymphatic: Hematologic/Lymphatic: Reports no additional hematologic/lymphatic complaints Allergic/Immunologic: Allergic/Immunologic: Reports no additional allergic/immunologic complaints Exam Const: General: comfortable and no acute distress Other: Pleasant gentleman no apparent distress HENMT: Mouth: Yes moist mucous membranes Eyes: Sclera: sclerae normal Neck: Neck: supple and no JVD Other: Carotid pulses are unremarkable bilaterally Resp: Effort & Inspection: normal respiratory effort Auscultation: clear to auscultation bilaterally Cardio: Rate: regular rate Rhythm: regular rhythm Heart sounds: S1 normal heart sound present, S2 normal heart sound present and no murmurs GI: Auscultation: normal bowel sounds Skin: General skin exam: normal color Neuro: Other: Alert and oriented x3 Extrem: General: normal to inspection Other: Normal perfusion, no edema Right groin arterial access site free from bleeding, hematoma, pain. Small amount of ecchymosis. Objective Data Vital Signs Vital Signs: Vital Signs - 24 hr 12/19/23 10:45 12/19/23 11:15 12/19/23 11:45 Temperature Pulse Rate 52 L 53 L 56 L Respiratory Rate 14 15 16 Blood Pressure 114/86 118/86 130/73 Pulse Oximetry 99 99 99 Oxygen Delivery Room Air Room Air Room Air 12/19/23 12:00 12/19/23 12:05 12/19/23 12:10 Temperature Pulse Rate 54 L 54 L 55 L Respiratory Rate 14 14 14 Blood Pressure 121/77 119/77 116/77 Pulse Oximetry 100 100 100 Oxygen Delivery Room Air Room Air Room Air 12/19/23 12:15 12/19/23 14:00 12/19/23 14:00 Temperature Pulse Rate 57 L 59 L 59 L Respiratory Rate 14 20 Blood Pressure 117/84 112/63 Pulse Oximetry 100 96 Oxygen Delivery Room Air 12/19/23 14:30 12/19/23 12:20 12/19/23 12:25 Temperature Pulse Rate 60 56 L 54 L Respiratory Rate 18 16 16 Blood Pressure 116/68 134/80 109/70 Pulse Oximetry 99 99 Oxygen Delivery Room Air Room Air 12/19/23 12:30 12/19/23 12:35 12/19/23 12:45 Temperature Pulse Rate 57 L 57 L 52 L Respiratory Rate 18 14 16 Blood Pressure 114/72 112/82 109/79 Pulse Oximetry 98 98 98 Oxygen Delivery Room Air Room Air Room Air 12/19/23 13:00 12/19/23 13:15 12/19/23 13:30 Temperature Pulse
[2023-12-20] MEDS: PERFLUTREN LIPID MICROSPHERES 1.5 ML VIAL DILUTED TO 10 ML TOTAL VOLUME IV PUSH (13:00)
--- NOTE | 2023-12-20 13:09 | PM.DS ---
DS: Admitting Diagnosis Discharge Date 12/20/23 Admitting Diagnosis Chest pain DS: Discharge Diagnosis Discharge Diagnosis (1) Non-STEMI (non-ST elevated myocardial infarction): Code(s): I21.4 - Non-ST elevation (NSTEMI) myocardial infarction Status: Acute (2) CAD (coronary artery disease): Code(s): I25.10 - Atherosclerotic heart disease of crow coronary artery without angina pectoris Status: Acute (3) Elevated blood pressure reading: Code(s): R03.0 - Elevated blood-pressure reading, without diagnosis of hypertension Status: Acute (4) Snoring: Code(s): R06.83 - Snoring Status: Acute DS: Summary Hospital Course Reason for hospitalization: 58yo male with GERD here for chest pain and found to have NSTEMI. Please see H&P for details. Hospital Course: Patient presented with upper back pain that radiated through to his chest that occurred while working. He was noted to have elevated blood pressure on admission. Patient has been told that he is prediabetic. He is a lifelong nonsmoker. Coronary disease in family members in their 60s. A1c 4.9. Troponin trended up to 0.42. CTA of the chest, abdomen and pelvis showed fatty infiltration of the liver but no acute process. Specifically there was no PE or aortic dissection. EKG showed sinus bradycardia otherwise normal EKG. Repeat EKG showed no change. He was given aspirin. He was given a dose of Lovenox. He was admitted for further care. Total cholesterol was 199 with LDL 149. Cardiology consulted. He was loaded with Plavix. He was started on Lopressor, Plavix and Crestor. He was resumed on therapeutic Lovenox. He underwent left heart catheterization showin. Right coronary dominant circulation with single-vessel coronary disease with 90% stenosis of mid RCA which is a large dominant vessel 2. Normal left ventricular systolic contractility 3. Successful revascularization using the 4 x 18 mm Orsiro drug-eluting stent with an excellent anatomical result. Patient tolerated the procedure well. Systolic blood pressure mildly elevated 140-160 range. Blood pressure better after metoprolol dose. Patient with snoring per history. ApneaLink showing AHI 20 and RI 21.5. Patient will need sleep study as outpatient and he is aware. Patient overall did well and was able to be discharged home on 12/20/23. Status at Discharge Cognitive/behavioral status at discharge: stable Time Spent with Patient Time attestation: Total time spent providing and/or coordinating discharge services: 35 minutes Time spent: Greater than 30 minutes Exam Narrative: AF 97.8 122/79 62 14 99% Gen - NARD Chest - CTA bilaterally, nml RR CV - RRR S1/S2. Tele showing no significant dysrhythmias Abd - Soft, NT/ND, Positive BS Ext - No pedal edema. 2+ right DP pulse. Right femoral site without hematoma or bruit Psych - Nml mood and affect Skin - Warm and dry DS: Data Data Completed and Pending Labs on day of discharge: Labs from last 24 hours 12/16/23 16:19 Creatinine 1.20 Estim Creat Clear Calc 75 Estimated GFR > 60 Discharge Plan Discharge Attending physician on discharge: Federico Lombardi Consulting providers: Mukesh Mixon Discharging Clinician: Federico Lombardi Anticipated Discharge Date/Time: 12/20/23 13:20 Patient Disposition: Home, Self-Care Activity: other - see discharge instructions Diet: heart healthy Discharge Instructions: [facility] [address] [facility] [address] [place] [address]
--- NOTE | 2023-12-20 13:36 | IVDEFINITY ---
Prior to administration of IV Definity the patient was educated on the risks and benefits of the imaging enhancing agent including potential adverse side effects. The patient verbalized understanding. Allergies were verified. No exclusion criteria were identified and at least one of the following inclusion criteria were met: 1) physician request, 2) patient technically difficult to image (per the [place] [employer] guidelines of two or more segments not discernable within the apical view), or 3) questionable left ventricular function. ?
--- NOTE | 2023-12-20 16:07 | PCCPR ---
Spoke with Ankur at bedside just as he was heading for ca. States the program sounds interesting however does not have much time off from work. Explained the program and hand out given. States he has a f/u apt in apx 2 weeks and will discuss more.
== END 2023-12-20 16:00 | disposition home or self-care (01) | DRG 322 ==
LOC: ANHED 19:17 → ANHIMU 20:08
PROVIDERS: Family Medicine; Internal Medicine; Specialist; Admitting Provider Internal Medicine; Emergency Provider Emergency Medicine; PCP Internal Medicine; Visit Provider Internal Medicine
PROC: 4A023N7 Measurement of Cardiac Sampling and Pressure, Left Heart, Percutaneous Approach (ICD-10-PCS; CPT 93452; principal; 2023-12-19 08:30)
PROC: 4A023N7 Measurement of Cardiac Sampling and Pressure, Left Heart, Percutaneous Approach (ICD-10-PCS; 2023-12-19 08:30)
DX: I21.4 Non-ST elevation (NSTEMI) myocardial infarction (principal); K21.9 Gastro-esophageal reflux disease without esophagitis; I25.10 Atherosclerotic heart disease of native coronary artery without angina pectoris; E66.9 Obesity, unspecified; R03.0 Elevated blood-pressure reading, without diagnosis of hypertension; R06.83 Snoring; Z68.32 Body mass index [BMI] 32.0-32.9, adult
CPT/HCPCS: 36415; 71275; 74174; 80053; 80061; 82565; 83036; 83690; 84439; 84443; 84480; 84484; 85025; 85610; 85730; 93005; 93458; 94762; 99285; A9270; C1725; C1769; C1874; C1887; C1894; C8929; C9113; C9600; G0378; J0461; J0583; J1644; J1650; J2250; J2405; J3010; J7030; J7040; Q9957; Q9967